=== PATIENT | male | born 1955 | race Caucasian/White ===

== ENCOUNTER → 2019-09-21 | Outpatient (CLI) | payer OTHER, MEDICARE ==
[~2019-09-21] MED LIST: AMBIEN 10 MG TA10 MG PO; ASPIRIN EC81 M1 PO; ATENOLOL 25MG T25 M1 PO; ATENOLOL 50 MG50 M1 PO; ATIVAN0.5 MG; BENADRYL25 MG PO; BENZTROPINE MES1 MG PO; CARVEDILOL3.125 MG OR; COZAAR100 MG PO; CYCLOBENZAPRINE10 MG PO; DIAZEPAM 2MG TAB2 MG PO; EFFEXOR75 MG PO; FIBER1 GM; HALOPERIDOL 5 MG5 M1 PO; HALOPERIDOL 5 MG5 MG PO; HYDROCHLOROTHIA25 M1 PO; IMITREX100 MG PO; LIPITOR20 MG PO; LIPITOR40 MG PO; LISINOPRIL-HCT1 EAC2 PO; LOVASTAT40 PO; MECLIZINE 25 MG25 M1 PO; MULTIVITAMINS1 EAC7 PO; NAPROSYN250 MG; NITROGLYCERIN0.4 MG SL; OMEPRAZOLE20 M2 PO; PLAVIX 75 MG TA75 MG OR; PRILOSEC 20 MG20 MG PO; PRINIVIL20 MG PO; REQUIP XL2 MG PO; TRIHEXYPHENIDYL2 M1 PO; VENLAFAXIN75 MG/1 T2 PO; ZOLOFT 50 MG TA50 M1; ZONEGRAN100 MG; ZONEGRAN100 MG PO; ZYPREXA2.5 MG; ZYRTEC10 M2
== END ==
LOC: M.ULTRA 13:28
DX: M79.662 Pain in left lower leg (principal); M79.89 Other specified soft tissue disorders

== ENCOUNTER → 2019-12-05 | Outpatient (CLI) | payer OTHER, MEDICARE | LOC: M.ULTRA 07:22 | PROVIDERS: ATTEND Specialist | DX: K76.89 Other specified diseases of liver (principal); R16.0 Hepatomegaly, not elsewhere classified; N28.1 Cyst of kidney, acquired; R94.5 Abnormal results of liver function studies ==